=== PATIENT | female | born 1945 | race Caucasian/White ===

== ENCOUNTER 2016-12-08 12:54 | Emergency (ER) | payer MEDICARE, OTHER | END 2016-12-08 19:45 | disposition short-term general hospital (02) | LOC: ER 12:54 | DX: N30.90 Cystitis, unspecified without hematuria (principal); R74.8 Abnormal levels of other serum enzymes; E11.9 Type 2 diabetes mellitus without complications; Z86.73 Personal history of transient ischemic attack (TIA), and cerebral infarction without residual deficits | CPT/HCPCS: 36415; 51701; J0696 ==